=== PATIENT | female | born 1960 | race Caucasian/White ===

== ENCOUNTER → 2023-06-19 | Outpatient (CLI) | payer BC ==
[2023-06-19 10:30] VITALS: BP 165/95; PULSE 96; RESP 18; TEMP 98.2
--- NOTE | 2023-06-19 11:47 | P.GSHP ---
History of Present Illness H&P Date: 06/19/23 Chief Complaint: lesion right breast Veronica is a 63 year old white female seen in consultation for Dr. Dominguez regarding a lesion in the right breast. She had a bilateral mammogram 02-09-23 which showed a lesion of concern in the right breast. An ultrasound of the area was done 03-19-23 which showed a 2.8 by 1.8 CM lesion. 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 The patient did not feel anything in her breast prior to her mammogram however now she states she feels some fullness in the right breast at the 7:00 position. She has had two core biopsies of the right breast in the remote past which were benign. She has had no biopsies of her left breast. She is not complaining of any recent trauma or infection in the breast. She is not complaining of any nipple discharge or skin changes. She does not complain of any new pain in the breasts. Caffeine: none nicotine: none; secondhand smoke secondary to her is a smoker 2 PPD chocolate: weekly BCP:30 years hormones:none Family History: Paternal grandmother: Breast cancer Hormonal History: menarche: 15 , breast fed: yes, age at first : 22 menopause: hysterectomy in 40's; uncertain if ovaries removed no cancer Surgical History: cyst removed from ovary hysterectomy Medical History: HTN Social History: nicotine: none alcohol: at least 2 beer daily drugs: none - Constitutional Constitutional: Denies chills, Denies fever - EENT Eyes: denies blurred vision, denies pain Ears: deny: decreased hearing, tinnitus Ears, nose, mouth and throat: Denies headache, Denies sore throat - Breasts Breasts: bilateral: as per HPI - Cardiovascular Cardiovascular: Denies chest pain, Denies shortness of breath - Respiratory Respiratory: Denies cough, Denies 7 - Gastrointestinal Gastrointestinal: Denies abdominal pain, Denies diarrhea, Denies nausea, Denies vomiting - Genitourinary (Female) Genitourinary: Denies dysuria, Denies hematuria - Menstruation Menstruation: Reports post hysterectomy - Musculoskeletal Musculoskeletal: Denies myalgias - Integumentary Integumentary: Denies pruritus, Denies rash - Neurological Neurological: Denies numbness, Denies weakness - Psychiatric Psychiatric: Reports anxiety, Reports depression - Endocrine Endocrine: Denies fatigue, Denies weight change - Hematologic/Lymphatic Comment: none - Allergic/Immunologic Allergic/Immunologic: Reports seasonal allergies Past Medical History History of Any Multi-Drug Resistant Organisms: None Reported Smoking Status: Never smoker Medications and Allergies Home Medications Medication Instructions Recorded Confirmed Type Cholecalciferol [Vitamin D3 (25 50 mcg PO DAILY 06/19/23 06/19/23 History Mcg = 1000 Iu)] Loratadine [Claritin] 10 mg PO DAILY 06/19/23 06/19/23 History Minocycline HCl [Minocin] 100 mg PO DAILY 06/19/23 06/19/23 History Triamcinolone Acetonide 1 applic TOPICAL DAILY 06/19/23 06/19/23 History [Triamcinolone Acetonide 0.1% Lotion] amLODIPine [Norvasc] 5 mg PO DAILY 06/19/23 06/19/23 History traZODone HCL [Desyrel] 50 mg PO HS 06/19/23 06/19/23 History Allergies Allergy/AdvReac Type Severity Reaction Status Date / Time No Known Allergies Allergy Unverified 06/19/23 10:16 Surgical - Exam Vital Signs Temp Pulse Resp BP Pulse Ox 98.2 F 96 18 165/95 99 06/19/23 10:19 06/19/23 10:19 06/19/23 10:19 06/19/23 10:19 06/19/23 10:19 - General no distress - Eyes normal ocular movement - Neck trachea midline - Respiratory normal respiratory effort, clear to auscultation - Cardiovascular Rhythm: regular Heart Sounds: normal: S1, S2 - Abdomen Abdomen: soft, non tender, no guarding, no rigid, no rebound - Integumentary echymosis over upper extremities, dark nevus near umbilicus, bilateral lower extremities with dark areas of ecchymosis questionable varicose veins - Neurologic no disoriented, no combative - Musculoskeletal normal gait - Psychiatric oriented to time, oriented to person, oriented to place, speech is normal, memory intact Breast Exam: BRA: 36B Inspection: Bilateral grade 2 ptosis Palpation: Right breast: Multi-positional exam fibrocystic changes, the 7 o'clock position is approximately 2-1/2 firm nodule which is freely mobile no other lumps masses or nodules of concern Right axilla: No adenopathy of concern Left breast: Multi-positional exam fibrocystic changes, no dominant masses or nodules of concern Left axilla: No adenopathy of concern Results Mammogram and ultrasound reviewed with Dr. Foss from. 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 Dominguez/consider hematology consult follow up here in two weeks CC: Dr. Dominguez
== END ==
LOC: WWCWWP 09:54
PROVIDERS: ATTEND Surgery
DX: D24.1 Benign neoplasm of right breast (principal); I10 Essential (primary) hypertension; Z80.3 Family history of malignant neoplasm of breast; Z90.710 Acquired absence of both cervix and uterus; Z90.721 Acquired absence of ovaries, unilateral

== ENCOUNTER → 2023-08-26 | Outpatient (CLI) | payer BC ==
--- NOTE | 2023-08-26 15:50 | CT ---
EXAMINATION TYPE: CT abdomen w con DATE OF EXAM: 08/26/2023 COMPARISON: Correlation breast biopsy 04/23/2023 HISTORY: 63-year-old female K51.90, [facility] TECHNIQUE: Contiguous axial scanning of the abdomen following administration of 100 ml Isovue 300 IV contrast. Delayed images through the kidneys and coronal/sagittal reconstructions performed. CT DLP: 589.9 mGycm Automated exposure control for dose reduction was used. FINDINGS: Heart is normal in size without pericardial effusion. Lung bases clear without pleural effu darrick. Partially visualized lateral right breast mass measuring at least 2.8 cm. Patient's prior ultrasound report measuring the same size. Appropriate clinical follow-up recommended as we noted that phyllodes tumor within the differential at the time of previous biopsy. A 1.1 cm mid hepatic dome cyst. Portal venous system is patent. Liver is enlarged. 20.9 cm. Portal venous system is patent. No biliary ductal dilatation. Gallbladder, adrenal glands, kidneys, and pancreas within normal limits. Spleen is enlarged at 14.8 cm. A couple prominent gastrohepatic ligament lymph nodes measuring up to 1.3 cm. Shawn hepatic lymph nod e measuring 1.9 cm. Hazy and anna changes in the upper retroperitoneum adjacent to the celiac axis a re nonspecific. No other mesenteric or retroperitoneal adenopathy seen. No dilated small bowel, free fluid, or free air. Mild to moderate stool burden. Partially visualized sigmoid diverticulosis. No pericolonic inflammatory change along the visualized portions. Pelvis is not imaged. Bones: Some facet arthropathy lower lumbar spine. IMPRESSION: 1. A FEW ENLARGED UPPER ABDOMINAL LYMPH NODES IN THE GASTROHEPATIC LIGAMENT REGION AND PORTAHEPATIS M EASURING UP TO 1.9 CM. IN ADDITION, THERE IS SOFT TISSUE STRANDING IN THE UPPER RETROPERITONEUM AT TH E LEVEL OF THE CELIAC AXIS. THE ETIOLOGY IS UNCLEAR. FINDINGS MAY BE SECONDARY TO GRANULOMATOUS DISEA SE OR CONNECTIVE TISSUE DISORDER. FOLLOW-UP CT IN 3 MONTHS TO EXCLUDE NEOPLASTIC ETIOLOGY SUCH EAR LY LYMPHOMA. 2. HEPATOSPLENOMEGALY (LIVER 20.9 CM AND SPLEEN 14.8 CM). 3. PARTIALLY VISUALIZED SIGMOID DIVERTICULOSIS. NOTE THAT THE PELVIS IS NOT IMAGED ON THIS ABDOMINAL CT. 4. PARTIALLY VISUALIZED KNOWN LATERAL RIGHT BREAST MASS.
== END | disposition home or self-care (01) ==
LOC: RADCTMAIN 12:46
PROVIDERS: ATTEND Internal Medicine Hematology & Oncology
DX: K51.90 Ulcerative colitis, unspecified, without complications (principal); K57.30 Diverticulosis of large intestine without perforation or abscess without bleeding; N63.10 Unspecified lump in the right breast, unspecified quadrant; R59.0 Localized enlarged lymph nodes; R16.2 Hepatomegaly with splenomegaly, not elsewhere classified; I10 Essential (primary) hypertension; R23.8 Other skin changes; Z87.01 Personal history of pneumonia (recurrent)
CPT/HCPCS: 74160; Q9967

== ENCOUNTER → 2023-09-18 | Outpatient (CLI) | payer BC ==
--- NOTE | 2023-09-19 11:27 | PE ---
EXAMINATION TYPE: PET CT fusion skull to thigh DATE OF EXAM: 09/18/2023 CLINICAL INDICATION:Female, 63 years old with history of R59.0 ENLARGED LYMPH NODES; TECHNIQUE: Following the intravenous administration of 8.5 mCi of F-18 FDG, whole body images are p erformed from the skull base to the midthigh. Images are reviewed on the computer in the coronal, ax ial, and sagittal planes. Reconstructed rotating images are created on independent workstation and r eviewed on the computer. A non-contrast CT is performed in conjunction with the PET scan. Glucose l evel 106 mg/dL CT DLP: 396 mGycm, Automated exposure control for dose reduction was used. COMPARISON: CT 08/26/2023, PET/CT None, FINDINGS: Mediastinal SUV mean is 2.3. Hepatic parenchyma SUV mean is 3.2. SKULL BASE AND NECK: No suspicious radiotracer activity. CHEST, MEDIASTINUM, AND HILAR REGION: No suspicious radiotracer activity. Right breast mass measuring 24 x 23 mm max SUV 3.7. Left axillary lymph node uptake max SUV 2.8. ABDOMEN AND PELVIS: * Hazy retroperitoneal fat stranding in the upper abdomen in the gastrohepatic ligament without foca l uptake. Lymph nodes on prior CT in 08/26/2023 are not significantly changed. The largest measuring 1 0 mm in short axis max SUV 1.2. MUSCULOSKELETAL STRUCTURES: * No suspicious radiotracer activity. * Degenerative uptake at the sternoclavicular joint of the right. OTHER CT: Right proximal humerus bone island. The heart is mildly enlarged for size. Hazy fat strandi ng seen in the upper abdominal retroperitoneum. IMPRESSION: 1. No definitive evidence for malignancy. 2. Gastrohepatic ligament hazy mesentery with a few lymph nodes without suspicious radiotracer uptak e. Comparisons with priors would be of benefit if available at outside institutions. Consider short-t erm follow-up CT with IV contrast in 3-6 months to ensure stability. 3. There is a right breast mass with increased radiotracer uptake. There may be a biopsy clip immedi ately adjacent to this lesion. Correlate with history of biopsy and mammography findings.
== END | disposition home or self-care (01) ==
LOC: RADPETMAIN 13:30
PROVIDERS: ATTEND Internal Medicine Hematology & Oncology
DX: N63.10 Unspecified lump in the right breast, unspecified quadrant (principal); R59.0 Localized enlarged lymph nodes
CPT/HCPCS: 78815; A9552

== ENCOUNTER → 2023-09-21 | Outpatient (CLI) | payer BC | END | disposition home or self-care (01) | LOC: LABWHC1 14:54 | PROVIDERS: ATTEND Internal Medicine Hematology & Oncology | DX: Z53.9 Procedure and treatment not carried out, unspecified reason (principal) ==

== ENCOUNTER → 2023-09-24 | Outpatient (CLI) | payer BC ==
[2023-09-24 10:34] VITALS: BP 173/96; PULSE 87; RESP 15; TEMP 98.2
--- NOTE | 2023-09-24 10:35 | P.PN ---
Subjective Progress Note Date: 09/24/23 Principal diagnosis: mass right breast 06/19/23 Chief Complaint: lesion right breast Veronica is a 63 year old white female seen in consultation for Dr. Dominguez regarding a lesion in the right breast. She had a bilateral mammogram 02-09-23 which showed a lesion of concern in the right breast. An ultrasound of the area was done 03-19-23 which showed a 2.8 by 1.8 CM lesion. 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 The patient did not feel anything in her breast prior to her mammogram however now she states she feels some fullness in the right breast at the 7:00 position. She has had two core biopsies of the right breast in the remote past which were benign. She has had no biopsies of her left breast. She is not complaining of any recent trauma or infection in the breast. She is not complaining of any nipple discharge or skin changes. She does not complain of any new pain in the breasts. 09-24-23 patient was seen by Dr. Andujar, bruising felt to be secondary to liver disease, cirrhotic liver disease PET CT done on 09-18-23 and reviewed, consider short term follow up of abdomen with IV contrast secondary to hazy mesentery with a few nodes, but not suspicious radiotracer note Dr. Andujar reviewed 09-21-23, may proceed with surgery, if needed FFP in perioperative period Has not noted any change in the size of the lesion in her right breast. It has not decreased in size but has not increased either. She is not complaining of any other new lumps masses or nodules of concern in either breast. patient also tells me she has been diagnosed with Ulcerative Collitis, in past about 40 years ago and is due for a colonoscopy 08-18-23 PT 12.5, (9.1-12) alk-phos: 128, AST: 54; PTT: 34 (23-33) INR: 1.2 Caffeine: none nicotine: none; secondhand smoke secondary to her is a smoker 2 PPD chocolate: weekly BCP:30 years hormones:none Family History: Paternal grandmother: Breast cancer Hormonal History: menarche: 15 , breast fed: yes, age at first : 22 menopause: hysterectomy in 40's; uncertain if ovaries removed no cancer Surgical History: cyst removed from ovary hysterectomy Medical History: HTN Social History: nicotine: none alcohol: at least 2 beer daily drugs: none - Constitutional Constitutional: Denies chills, Denies fever - EENT Eyes: denies blurred vision, denies pain Ears: deny: decreased hearing, tinnitus Ears, nose, mouth and throat: Denies headache, Denies sore throat - Breasts Breasts: bilateral: as per HPI - Cardiovascular Cardiovascular: Denies chest pain, Denies shortness of breath - Respiratory Respiratory: Denies cough - Gastrointestinal Gastrointestinal: Denies abdominal pain, Denies diarrhea, Denies nausea, Denies vomiting - Genitourinary (Female) Genitourinary: Denies dysuria, Denies hematuria - Menstruation Menstruation: Reports post hysterectomy - Musculoskeletal Musculoskeletal: Denies myalgias - Integumentary Integumentary: Denies pruritus, Denies rash - Neurological Neurological: Denies numbness, Denies weakness - Psychiatric Psychiatric: Reports anxiety, Reports depression - Endocrine Endocrine: Denies fatigue, Denies weight change - Hematologic/Lymphatic Comment: none - Allergic/Immunologic Allergic/Immunologic: Reports seasonal allergies Past Medical History History of Any Multi-Drug Resistant Organisms: None Reported Smoking Status: Never smoker Medications and Allergies Home Medications Medication Instructions Recorded Confirmed Type Cholecalciferol [Vitamin D3 (25 50 mcg PO DAILY 06/19/23 06/19/23 History Mcg = 1000 Iu)] Loratadine [Claritin] 10 mg PO DAILY 06/19/23 06/19/23 History Minocycline HCl [Minocin] 100 mg PO DAILY 06/19/23 06/19/23 History Triamcinolone Acetonide 1 applic TOPICAL DAILY 06/19/23 06/19/23 History [Triamcinolone Acetonide 0.1% Lotion] amLODIPine [Norvasc] 5 mg PO DAILY 06/19/23 06/19/23 History traZODone HCL [Desyrel] 50 mg PO HS 06/19/23 06/19/23 History Allergies Allergy/AdvReac Type Severity Reaction Status Date / Time No Known Allergies Allergy Unverified 06/19/23 10:16 Objective - Vital Signs Vital signs: Vital Signs Temp 98.2 F 09/24/23 09:59 Pulse 87 09/24/23 09:59 Resp 15 09/24/23 09:59 BP 173/96 09/24/23 09:59 Pulse Ox FiO2 Intake & Output 09/23/23 09/24/23 09/24/23 18:59 06:59 18:59 Weight 70.76 kg - Constitutional General appearance: Present: cooperative - EENT Eyes: Present: EOMI ENT: Present: hearing grossly normal - Neck Neck: Present: normal ROM - Respiratory Respiratory: bilateral: CTA - Cardiovascular Rhythm: regular Heart sounds: normal: S1, S2 - Gastrointestinal Gastrointestinal Comment(s): abdomen slightly distended Hepatomegaly Splenomegaly - Integumentary Integumentary: Present: normal turgor - Musculoskeletal Musculoskeletal: Present: gait normal - Psychiatric Psychiatric: Present: A&O x's 3, appropriate affect, intact judgment & insight - Additional findings Additional findings: Breast Exam: BRA: 36B Inspection: Bilateral grade 2 ptosis Palpation: Right breast: Multi-positional exam fibrocystic changes, the 7 o'clock position is approximately 2-1/2 firm nodule which is freely mobile no other lumps masses or nodules of concern Right axilla: No adenopathy of concern Left breast: Multi-positional exam fibrocystic changes, no dominant masses or nodules of concern Left axilla: No adenopathy of concern Assessment and Plan Assessment: Impression: Right breast 7 o'clock position lesion this was not present on mammogram from last year for biopsy consistent 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 Andujar 09-21-23 done appointment with GI CC: Dr. Dominguez
== END ==
LOC: WWCWWP 08:43
PROVIDERS: ATTEND Surgery
DX: R92.8 Other abnormal and inconclusive findings on diagnostic imaging of breast (principal)

== ENCOUNTER → 2023-10-27 | Outpatient (CLI) | payer BC ==
[2023-10-27 15:30] LABS: Ceruloplasmin 25.9 mg/dL (20.0-60.0)
[2023-10-27 15:43] LABS: % Iron Saturation 58.07 (12.00-45.00); ALT 41 U/L (8-44); AST 74 U/L (13-35); Albumin 4.6 g/dL (3.8-4.9); Albumin/Globulin Ratio 1.48 Ratio (1.60-3.17); Alkaline Phosphatase 154 U/L (41-126); BUN/Creat Ratio 9.67 Ratio (12.00-20.00); Blood Urea Nitrogen 5.8 mg/dL (9.0-27.0); C Reactive Protein <0.30 mg/dL (0.00-0.80); Calcium 9.5 mg/dL (8.7-10.3); Carbon Dioxide 23.4 mmol/L (21.6-31.8); Chloride 97 mmol/L (96-109); Globulin 3.1 g/dL (1.6-3.3); Glucose 134 mg/dL (70-110); Iron 187 UG/DL (50-170); Potassium 3.7 mmol/L (3.5-5.5); Sodium 135 mmol/L (135-145); Total Bilirubin 1.2 mg/dL (0.3-1.2); Total Iron Binding Capacity 322 UG/DL (228-460); Total Protein 7.7 g/dL (6.2-8.2)
[2023-10-27 16:24] LABS: Basophils # (A) 0.03 X 10*3/uL (0.00-0.10); Basophils % (A) 0.7 %; Eosinophils # (A) 0.04 X 10*3/uL (0.04-0.35); Eosinophils % (A) 0.9 %; HCT 42.2 % (37.2-46.3); HGB 14.6 g/dL (12.0-15.0); Lymphocytes # (A) 0.79 X 10*3/uL (0.90-5.00); Lymphocytes % (A) 17.2 %; MCH 35.4 pg (27.0-32.0); MCHC 34.6 g/dL (32.0-37.0); MCV 102.2 FL (80.0-97.0); Monocytes # (A) 0.32 X 10*3/uL (0.20-1.00); NRBC Per 100 WBC 0 X 10*3/uL (0.00-0.01); Neutrophils % (A) 73.8 %; Platelet Count 90 X 10*3/uL (140-440); RBC 4.13 X 10*6/uL (4.10-5.20); RDW 12.3 % (11.5-14.5)
[2023-10-27 17:03] LABS: Erythrocyte Sedimentation Rate 17 mm/Hr (0-30)
[2023-10-27 17:26] LABS: Gliadin AB IgA, Deaminated Negative (Negative); Gliadin AB IgA, Unit 1.4 U/mL; Gliadin AB IgG, Deaminated Negative (Negative); Gliadin AB IgG, Unit <0.4 U/mL
== END | disposition home or self-care (01) ==
LOC: LABWHC1 09:46
PROVIDERS: ATTEND Internal Medicine Gastroenterology
DX: K52.9 Noninfective gastroenteritis and colitis, unspecified (principal); K74.60 Unspecified cirrhosis of liver
CPT/HCPCS: 36415; 80053; 81596; 82103; 82390; 82728; 83516; 83540; 83550; 85025; 85652; 86038; 86039; 86140

== ENCOUNTER 2023-11-19 12:25 | Day surgery (SDC) | payer BC ==
[~2023-11-19 12:25] MED LIST: HEPARIN SODIUM,PORCINE 5,000 UNIT/ML 1 ML VIAL SQ PRN; LIDOCAINE 1% (10MG/ML) FOR IV START INTRADERMA PRN; SCOPOLAMINE 1 MG/72 HR PATCH TRANSDERM ONE; droPERidol 5 MG/2 ML VIAL IVP ONE
[2023-11-19] MEDS: LACTATED RINGERS 1,000 ML IV SCH (13:15)
[2023-11-19] MEDS: ONDANSETRON 4 MG/2 ML VIAL IVP ONE (13:32)
[2023-11-19] MEDS: ACETAMINOPHEN TAB 500 MG TAB PO PRN (13:32)
[2023-11-19] MEDS: DEXAMETHASONE SOD PHOSPHATE 4 MG/ML 1 ML VIAL IV ONE (13:32)
[2023-11-19] MEDS ORDERED: LIDOCAINE 1% INJ 10MG/ML (20 ML MDV) ONE (13:50)
[2023-11-19] MEDS ORDERED: PROPOFOL 10 MG/ML 20 ML VIAL IV ONE (13:50)
[2023-11-19] MEDS ORDERED: fentaNYL (PF) 50 MCG/ML 2 ML AMP ONE (13:50)
[2023-11-19] MEDS ORDERED: MIDAZOLAM 2 MG/2 ML VIAL ONE (13:50)
[2023-11-19 14:01] LABS: INR 1.3 (<1.2); Prothrombin Time 13.6 sec (10.0-12.5)
[2023-11-19] MEDS: BUPIVACAINE (PF) 0.25% 10 ML VIAL SQ ONE ×3 (14:11→14:23)
[2023-11-19] MEDS ORDERED: NALOXONE 0.4 MG/ML 1 ML VIAL IV PRN (14:35)
[2023-11-19] MEDS ORDERED: HYDROcodone/APAP 5-325MG 1 EACH TAB PO PRN (14:35)
--- NOTE | 2023-11-19 14:40 | P.OP ---
Date of Procedure: 11/19/23 Procedure(s) Performed: PREOPERATIVE DIAGNOSIS: Right breast mass POSTOPERATIVE DIAGNOSIS: Same PROCEDURE: Right Breast lumpectomy SURGEON: Jb EBL: 5 cc ANESTHESIA: General COMPLICATIONS: None OPERATIVE PROCEDURE: Patient was placed on the operating room table in the supine position. The breast was prepped and draped sterilely. The patient had a palpable mass 7:00. A curvilinear incision was made along the areola. Dissection through the subcutaneous tissues took place using electrocautery. The mass was fully excised. Margins of 5 mm or so were taken. The mass was sent to pathology for close examination. Small areas of bleeding were controlled using either suture ligature or cautery. Surgicel snow was used at the operative bed. Subcutaneous tissues were closed using 3-0 Vicryl sutures. The skin was closed using a running 4-0 Monocryl stitch. Skin glue was then applied. DISPOSITION: Stable to recovery room
[2023-11-19 15:06] VITALS: TEMP 97
[2023-11-19] MEDS: HYDROmorphone 0.5 MG/0.5 ML SYRINGE IVP PRN (15:07)
[2023-11-19 16:50] VITALS: BP 141/72; PULSE 77; RESP 16
== END 2023-11-19 16:30 | disposition home or self-care (01) ==
LOC: OR 12:25
PROVIDERS: ATTEND Surgery
DX: D24.1 Benign neoplasm of right breast (principal)
CPT/HCPCS: 19301; 88305; 85610; J2250; J1100; J0690; J2405; J2001; J3010; J2704; J1170; J0665

== ENCOUNTER 2023-12-16 09:10 | Day surgery (SDC) | payer BC ==
[2023-12-11 15:16] VITALS: BMI 24.2
[2023-12-16] MEDS ORDERED: LIDOCAINE 1% (10MG/ML) FOR IV START INTRADERMA PRN (09:19)
[2023-12-16] MEDS: IV FLUID CONTINUATION 1,000 ML IV ONE (09:47)
[2023-12-16] MEDS: LACTATED RINGERS 1,000 ML IV SCH (09:48)
[2023-12-16] MEDS ORDERED: PROPOFOL 10 MG/ML 20 ML VIAL IV ONE (09:51)
[2023-12-16] MEDS ORDERED: LIDOCAINE 1% INJ 10MG/ML (20 ML MDV) ONE (09:51)
[2023-12-16 09:52] VITALS: RESP 16; TEMP 98
--- NOTE | 2023-12-16 10:13 | P.PCN ---
Date of Procedure: 12/16/23 Procedure(s) Performed: Brief history: Patient is a pleasant 63-year-old white female scheduled for an elective upper endoscopy as well as colonoscopy as a part of evaluation of chronic diarrhea for the last several months duration. She also has history of leukocytosis and scheduled for an upper endoscopy for screening for esophageal varices. Procedure performed: Esophagogastroduodenoscopy biopsy Colonoscopy with biopsy and snare polypectomy Preoperative diagnosis: History of liver cirrhosis/screening for esophageal varices Chronic diarrhea Anesthesia: MAC Procedure: After informed consent was obtained from the patient was brought into the endoscopy unit and IV sedation was administered by anesthesia under continuous monitoring. Initially upper endoscopy was done. The Olympus GF 160 video endoscope was inserted inserted into the mouth and esophagus intubated without any difficulty and was gradually advanced into the stomach and duodenum and carefully examined. The bulb and second part of the duodenum appeared normal. Biopsies were done from the duodenum to evaluate for celiac disease. The scope was then withdrawn into the stomach adequately insufflated with air and upon careful examination the antrum and gastritis and biopsies were done from this area. In the proximal body there was small gastric polyps which were also biopsied. Body, cardia and fundus appeared normal. History varices identified. The scope was then withdrawn into the esophagus. Mild hiatal hernia noted. The GE junction was located at 40 cm to the incisors. It appeared regular with no erythema erosions or ulcerations. Esophageal varices seen rest of the esophagus appeared normal. Patient tolerated the procedure well. At this time the patient continued to remain sedation. Initial digital rectal examination was normal. Olympus CF 160 video colonoscope was then inserted into the rectum and gradually advanced to the cecum without any difficulty. Careful examination was performed as the scope was gradually being withdrawn. The prep was excellent. The cecum, had a 1 cm polyp removed by snare polypectomy. In the hepatic flexure there was a 5 mm polyp removed by snare polypectomy. Rest of the ascending colon, transverse colon, descending colon, sigmoid colon and rectum appeared normal. Biopsies were done from the ascending and descending colon to rule out microscopic/collagenous colitis. Scattered sigmoid diverticulosis. Retroflexion was performed in the rectum and no lesions were noted. Patient tolerated the procedure well. Impression: 1. Upper endoscopy revealed mild antral gastritis, small hiatal hernia but no evidence of gastric or esophageal varices 2. Colonoscopy revealed 1 cm cecal polyp and a 5 mm hepatic flexure polyp status post snare polypectomy and scattered sigmoid diverticulosis Recommendations: Findings of this examination were discussed with the patient as well as her family. She was advised to follow-up with the biopsy results. If the biopsy reveals adenoma she can have repeat colonoscopy 3 years. Recommended repeat upper endoscopy in 3 years to screen for esophageal varices.
[2023-12-16 10:34] VITALS: BP 148/90; PULSE 84
== END 2023-12-16 11:01 | disposition home or self-care (01) ==
LOC: ORWHC2ENDO 09:10
PROVIDERS: ATTEND Internal Medicine Gastroenterology
DX: K29.50 Unspecified chronic gastritis without bleeding (principal); D12.2 Benign neoplasm of ascending colon; D12.0 Benign neoplasm of cecum; D12.3 Benign neoplasm of transverse colon; K31.7 Polyp of stomach and duodenum; K44.9 Diaphragmatic hernia without obstruction or gangrene; K57.30 Diverticulosis of large intestine without perforation or abscess without bleeding; K74.60 Unspecified cirrhosis of liver; I10 Essential (primary) hypertension; Z79.899 Other long term (current) drug therapy; Z90.710 Acquired absence of both cervix and uterus
CPT/HCPCS: 88305; 45380; 45385; 43239; J2001; J2704

== ENCOUNTER → 2023-12-30 | Outpatient (CLI) | payer BC | END | disposition home or self-care (01) | LOC: LABWHC1 08:39 | PROVIDERS: ATTEND Nurse Practitioner Family | DX: K74.60 Unspecified cirrhosis of liver (principal) | CPT/HCPCS: 36415; 81256 ==

== ENCOUNTER → 2024-02-01 | Outpatient (CLI) | payer BC ==
--- NOTE | 2024-03-29 11:01 | US ---
Site ID [facility] Senait Naqvi A ID [id number] 1960 Age/Gender: 63Y, F Order # N/A Procedure US Abdomen Limited Date 02/01/2024 8:29:00 AM INDICATION: Patient age: Female; 63 year old; Reason for study: Cirrhosis COMPARISON: Head CT 09/18/2023, CT abdomen 08/26/2023. TECHNIQUE: Multiple grayscale and color doppler ultrasound images of the right upper abdomen obtained utilizing transabdominal imaging. FINDINGS: PANCREAS: Limited evaluation of the pancreas secondary to bowel. LIVER: The liver demonstrates coarsened and hyperechoic echotexture without nodular border. Note that increa sed echogenicity limits evaluation for focal hepatic lesions. No focal lesion identified. Mildly enla rged measuring 18.4 cm. GALLBLADDER: The gallbladder demonstrates layering sludge with sludge balls. No shadowing calculi. No wall thicken ing or surrounding fluid. Gallbladder wall measures up to 2 mm in thickness. The common duct measures approximately 2 mm. Per assembler for puller over hand, the sonographic Solomon's sign was negative. RIGHT KIDNEY: The right kidney measures 10.8 x 5.3 x 5.1 cm, without evidence of hydronephrosis, shadowing calculus , or contour deforming solid mass. Renal parenchymal echogenicity is within normal limits. OTHER: No significant. IMPRESSION: 1. Hepatomegaly with coarsened echotexture. No gross evidence of focal lesion. Finding suggests nonsp ecific hepatocellular disease. No overt cirrhotic appearance. 2. Gallbladder sludge without ultrasound evidence for acute cholecystitis.
== END | disposition home or self-care (01) ==
LOC: RADUSWWP 08:07
PROVIDERS: ATTEND Internal Medicine Gastroenterology
DX: K74.60 Unspecified cirrhosis of liver (principal); K82.8 Other specified diseases of gallbladder
CPT/HCPCS: 76705

== ENCOUNTER → 2024-02-01 | Outpatient (CLI) | payer BC ==
--- NOTE | 2024-02-24 19:20 | MM ---
Reason for Exam: Screening (asymptomatic). Last screening mammogram was performed 12 month(s) ago. Patient History: Menarche at age 17. First Full-Term at age 22. Left ovary removed at age 37. Right ovary removed at age 37. Hysterectomy at age 37. 10/2023, Excisional Biopsy on the Right side. Paternal grandmother had breast cancer. Risk Values: Leilani 5 year model risk: 1.4%. NCI Lifetime model risk: 6.9%. Prior Study Comparison: 01/30/2022 Bilateral Screening Mammogram, [facility]. 02/09/2023 Bilateral Screening Mammogram, [facility]. Tissue Density: The breasts are heterogeneously dense, which may obscure small masses. Findings: Analyzed By CAD. Distortion centrilobular aspect of the right breast at the site of previous mass. History provided of excisional biopsy in October 2023. Findings most suggestive of postsurgical scar. Short-term follow-up recommended to reassess. There are 3 microclips within the right breast from prior biopsies. Otherwise, no significant change. Overall Assessment: Probably benign, BI-RAD 3 Management: Diagnostic Mammogram of the right breast in 6 months. For suspected postexcisional scar. Patient should continue monthly self-breast exams. A clinical breast exam by your physician is recommended on an annual basis. This exam should not preclude additional follow-up of suspicious palpable abnormalities. Note on Leilani scores and lifetime risk: 1. A Leilani score greater than 3% is considered moderate risk. If this is the case, consider specialist referral to assess eligibility for a risk reducing agent. 2. If overall lifetime risk for the development of breast cancer is 20% or higher, the patient may qualify for future screening with alternating mammogram and breast MRI. Electronically signed and approved by: Carl Foss M.D. Radiologist
== END | disposition home or self-care (01) ==
LOC: RADMAMWWP 08:07
PROVIDERS: ATTEND Surgery
DX: Z12.31 Encounter for screening mammogram for malignant neoplasm of breast (principal); Z80.3 Family history of malignant neoplasm of breast; Z90.721 Acquired absence of ovaries, unilateral; R92.333 Mammographic heterogeneous density, bilateral breasts
CPT/HCPCS: 77063; 77067

== ENCOUNTER → 2024-04-29 | Outpatient (CLI) | payer BC ==
[2024-04-29 15:16] LABS: ALT 32 U/L (8-44); AST 72 U/L (13-35); Albumin/Globulin Ratio 1.48 Ratio (1.60-3.17); Alkaline Phosphatase 154 U/L (41-126); Blood Urea Nitrogen 7.9 mg/dL (9.0-27.0); Calcium 9.2 mg/dL (8.7-10.3); Carbon Dioxide 25.1 mmol/L (21.6-31.8); Chloride 103 mmol/L (96-109); Globulin 2.7 g/dL (1.6-3.3); Glucose 107 mg/dL (70-110); Sodium 140 mmol/L (135-145); Total Bilirubin 1.3 mg/dL (0.3-1.2); Total Protein 6.7 g/dL (6.2-8.2)
[2024-04-29 17:27] LABS: Basophils # (A) 0.05 X 10*3/uL (0.00-0.10); Basophils % (A) 1.1 %; Eosinophils # (A) 0.05 X 10*3/uL (0.04-0.35); Eosinophils % (A) 1.1 %; HCT 38.5 % (37.2-46.3); HGB 13.3 g/dL (12.0-15.0); Lymphocytes # (A) 0.95 X 10*3/uL (0.90-5.00); Lymphocytes % (A) 20.7 %; MCH 36.3 pg (27.0-32.0); MCHC 34.5 g/dL (32.0-37.0); MCV 105.2 FL (80.0-97.0); Monocytes # (A) 0.37 X 10*3/uL (0.20-1.00); Monocytes % (A) 8.1 %; NRBC Per 100 WBC 0 X 10*3/uL (0.00-0.01); Neutrophils # (A) 3.15 X 10*3/uL (1.80-7.70); Neutrophils % (A) 68.8 %; Platelet Count 89 X 10*3/uL (140-440); RBC 3.66 X 10*6/uL (4.10-5.20); RBC Morphology Normal (Normal); RDW 12.3 % (11.5-14.5); WBC 4.58 X 10*3/uL (4.50-10.00)
== END | disposition home or self-care (01) ==
LOC: LABWHC1 11:17
PROVIDERS: ATTEND Nurse Practitioner Family
DX: K74.60 Unspecified cirrhosis of liver (principal)
CPT/HCPCS: 36415; 80053; 85025

== ENCOUNTER → 2024-08-02 | Outpatient (CLI) | payer BC ==
[2024-08-02 19:07] LABS: HCT 39.4 % (37.2-46.3); HGB 13.5 g/dL (12.0-15.0); Immature Platelet Fraction 3.6 % (1.1-6.1); MCH 36.5 pg (27.0-32.0); MCHC 34.3 g/dL (32.0-37.0); MCV 106.5 FL (80.0-97.0); Mean Platelet Volume 10.2 FL (9.5-12.2); NRBC Per 100 WBC 0 X 10*3/uL (0.00-0.01); Platelet Count 65 X 10*3/uL (140-440); RDW 12.4 % (11.5-14.5); WBC 3.16 X 10*3/uL (4.50-10.00)
[2024-08-02 19:08] LABS: Basophils # (A) 0.02 X 10*3/uL (0.00-0.10); Basophils % (A) 0.6 %; Eosinophils # (A) 0.04 X 10*3/uL (0.04-0.35); Eosinophils % (A) 1.3 %; Lymphocytes # (A) 0.67 X 10*3/uL (0.90-5.00); Lymphocytes % (A) 21.2 %; Monocytes # (A) 0.24 X 10*3/uL (0.20-1.00); Monocytes % (A) 7.6 %; Neutrophils # (A) 2.17 X 10*3/uL (1.80-7.70); Neutrophils % (A) 68.7 %
[2024-08-02 19:42] LABS: ALT 31 U/L (8-44); AST 101 U/L (13-35); Albumin 4.1 g/dL (3.8-4.9); Albumin/Globulin Ratio 1.58 Ratio (1.60-3.17); Alkaline Phosphatase 142 U/L (41-126); Calcium 8.8 mg/dL (8.7-10.3); Chloride 104 mmol/L (96-109); Globulin 2.6 g/dL (1.6-3.3); Glucose 108 mg/dL (70-110); Iron 121 UG/DL (50-170); Potassium 3.5 mmol/L (3.5-5.5); Sodium 141 mmol/L (135-145); Total Bilirubin 1.3 mg/dL (0.3-1.2); Total Protein 6.7 g/dL (6.2-8.2)
== END | disposition home or self-care (01) ==
LOC: LABWHC1 09:30
PROVIDERS: ATTEND Internal Medicine Gastroenterology
DX: K74.60 Unspecified cirrhosis of liver (principal)
CPT/HCPCS: 36415; 80053; 82105; 82728; 83540; 85025

== ENCOUNTER → 2024-08-02 | Outpatient (CLI) | payer BC ==
--- NOTE | 2024-08-02 10:04 | US ---
EXAMINATION TYPE: US liver DATE OF EXAM: 08/02/2024 COMPARISON: US, CT CLINICAL INDICATION: Female, 64 years old with history of K74.60 UNSPECIFIED CIRRHOSIS OF LIVER; Cirr hosis TECHNIQUE: Grayscale and color Doppler imaging of the right upper quadrant was performed. FINDINGS: EXAM MEASUREMENTS: Liver Length: 22.7 cm Gallbladder Wall: 0.3 cm CBD: 0.3 cm Right Kidney: 10.2 x 4.1 x 4.7 cm [employer] MK1 OPERATOR NOTES: Pancreas: 2mm panc duct visualized, tail obscured by overlying bowel gas Liver: Enlarged, heterogeneous, lobulated contour especially to left lobe, cystic lesion left medial lobe= 1.6 cm Gallbladder: Distended with possible sludge balls vs small stones at dependent portion. Gallbladder wall thickening is present Evidence for sonographic Solomon's sign: No CBD: wnl Right Kidney: No evidence of hydro IMPRESSION: 1. Hepatomegaly some contour lobular appearance may be present suggesting developing cirrhosis. 2. Hepatic cyst. 3. Small amount of sludge may be within the gallbladder. No shadowing gallstones identified. 4. Mild wall thickening of the gallbladder. [facility], , 08/02/2024 10:02 AM
== END | disposition home or self-care (01) ==
LOC: RADUSWWP 09:01
PROVIDERS: ATTEND Internal Medicine Gastroenterology
DX: K74.60 Unspecified cirrhosis of liver (principal); R16.0 Hepatomegaly, not elsewhere classified; K76.89 Other specified diseases of liver; K82.8 Other specified diseases of gallbladder
CPT/HCPCS: 76705